=== PATIENT | male | born 1985 | race Caucasian/White ===

== ENCOUNTER 2016-07-23 20:59 | Emergency (ER) | payer OTHER ==
[~2016-07-23] VITALS: Ht 182.9 cm; Wt 117.2 kg
[~2016-07-23 20:59] MED LIST: NOHOMEMEDS
[2016-07-23 21:23] VITALS: BP 153/85
== END 2016-07-23 23:05 | disposition left against medical advice (07) ==
LOC: EME 20:59
DX: R42 Dizziness and giddiness (principal); Z53.21 Procedure and treatment not carried out due to patient leaving prior to being seen by health care provider